=== PATIENT | female | born 1980 | race African-American/Black ===

== ENCOUNTER 2017-01-31 08:47 | Emergency (ER) | payer MEDICAID ==
[~2017-01-31] VITALS: Wt 72.5 kg
[2017-01-31] MEDS ORDERED: IBUPROFEN 600 MG TAB PO ONE (09:00)
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
--- NOTE | 2017-01-31 09:59 | RADRPT ---
PROCEDURE: XR Ankle. CLINICAL INDICATION: Right ankle pain. TECHNIQUE: Three views of the right ankle were performed. COMPARISON: None. FINDINGS: No acute fracture or dislocation is seen. The ankle mortise is symmetric. No radiopaque foreign body is identified. Mild ankle soft tissue swelling is noted. IMPRESSION: 1. No acute fracture or dislocation. 2. Mild ankle soft tissue swelling. RPTAT: HH .Flaquita Caldwell MD, MD Date Time Electronically viewed and signed by .Flaquita Caldwell MD, on 01/31/2017 09:59 .N/
[2017-01-31] MEDS ORDERED: IBUP-1542 PO (10:04)
== END 2017-01-31 11:16 | disposition home or self-care (01) ==
LOC: FTE 08:47
DX: S00.83XA Contusion of other part of head, initial encounter (principal); Y08.89XA Assault by other specified means, initial encounter
CPT/HCPCS: 73610; Z7502; Z7610